=== PATIENT | female | born 1995 | race Caucasian/White ===

== ENCOUNTER 2022-09-12 08:38 | Outpatient (REF) | payer OTHER, SELFPAY ==
[2022-09-12 13:08] LABS: Anion Gap 13 (12-20); Blood Urea Nitrogen 9 mg/dL (9-16); Calcium 8.8 mg/dL (8.4-10.2); Carbon Dioxide 23 mmol/L (22-29); Chloride 110 mmol/L (96-108); Cholesterol 165 mg/dL; Estimated Glomerular Filt Rate > 60; Glucose Fasting 106 mg/dL (60-99); HDL Cholesterol 39 mg/dL; LDL Cholesterol Calculated 111 mg/dl; Potassium 4.1 mmol/L (3.3-5.1); Sodium 142 mmol/L (135-145); Triglycerides 78 mg/dL
[2022-09-12 13:32] LABS: Vitamin D 25-OH Total 17.3 ng/mL (>30)
== END 2022-09-12 08:39 | disposition home or self-care (01) ==
LOC: HO.HMGCLDS 08:38
PROVIDERS: PCP Internal Medicine; Visit Provider Internal Medicine
DX: Z00.01 Encounter for general adult medical examination with abnormal findings (principal); E66.01 Morbid (severe) obesity due to excess calories; G35 Multiple sclerosis
CPT/HCPCS: 36415; 80048; 80061; 82306

== ENCOUNTER 2024-03-27 10:55 | Outpatient (AMB) | payer OTHER, SELFPAY ==
--- NOTE | 2024-03-27 10:59 | A.OFFPC_ITS ---
Vital Signs 03/27/24 11:00 Height 5 ft 3 in Weight 260 lb BMI 46.1 BP 120/70 Blood Pressure Location Lt brachial Position Sitting Pulse 91 Pulse Source Pulse Oximeter Pulse Oximetry (%) 100 Oxygen Delivery Method Room Air Intake Visit Reasons: Annual PE Intake Note: Pt is here today for her PE: Is last menstrual period known: Yes Last menstrual period: 03/07/24 Allergies No Known Allergies Allergy (Verified 03/27/24 11:07) Medication List - Last Reconciled 03/27/24 by Mignon Thomas MD ocrelizumab (Ocrevus) 600 mg IV [id number] Tobacco use date assessed: 03/27/24 Dental Screening Dental Screen Date: 03/27/24 Did you have a dental visit in the last 12 months?: Yes Did you have a dental problem in the last 6 months where you did not have access to dental care?: No Was dental information given to patient?: Patient has dentist HPI Annual PE HPI Details 28-year-old lady with history of multipl e sclerosis currently on Ocrevus infusion every six-month followed at Neurology in [facility], here today for physical exam. She goes to [facility] for her routine Pap and pelvic exam. She has been feeling well, with no complaints at present time. Trying to lose weight through diet and exercise. [facility] Medical History (Updated 03/27/24 @ 11:27 by Mignon Thomas MD) COVID-19 vaccination refused Impaired fasting glucose Anxiety History of COVID-19 Hx of optic neuritis Morbid obesity Multiple sclerosis Surgical History No pertinent past surgical history Family History Father Alcoholism Substance use disorder Mother Hypercholesterolemia Maternal Grandmother Diabetes mellitus Family/Other Substance use disorder Paternal Aunt Multiple sclerosis Social History Household Members: Significant Other Housing: Apartment Alcohol intake: current Alcohol intake frequency: holidays/special occasions only Alcohol type: wine Patient Tobacco Use Status: Never used Tobacco e-Cigarette/Vaping Use: Never Used Second Hand Smoke Exposure: No service: No Current occupational status: employed Current occupation: [employer] Current occupational exposures/hazards: No Cognitive needs: No Hearing needs: No Vision needs: Yes Female Reproductive History Menstrual Duration of menses: 3-5 days Date of last menstrual period: 03/07/24 [facility] Questionnaire PHQ-9 Over the last 2 weeks, how often have you been bothered by any of the following problems? 1. Little interest or pleasure in doing things: not at all 2. Feeling down, depressed, or hopeless: not at all 3. Trouble falling or staying asleep, or sleeping too much: not at all 4. Feeling tired or having little energy: several days 5. Poor appetite or overeating: not at all 6. Feeling bad about yourself - or that you are a failure or have let yourself or your family down: not at all 7. Trouble concentrating on things, such as reading the newspaper or watching television: not at all 8. Moving or speaking so slowly that other people could have noticed. Or the opposite - being so fidgety or restless that you have been moving around a lot more than usual: not at all 9. Thoughts that you would be better off or of hurting yourself in some way: not at all Total score: 1 Depression Screening Interpretation: Negative Depression Screening Done: Yes 97482 - PHQ-9 Billing: Yes Source: Developed by Drs. Logan Alexandra, Melody Kelly, Igor March and colleagues, with an educational marie from [employer]. Thrive Questionnaire Date Thrive assessed: 09/12/22 I am a: Patient What is your living situation today?: I have a steady place to live Within the past 12 months, did the food you bought not last and you didn't have the money to get more?: Never true Within the past 12 months, did you worry whether your food would run out before you got money to buy more?: Never true Do you have trouble paying for medicines?: No Do you have trouble getting transportation to medical appointments?: No Do you have trouble paying your heating and electricity bill?: No Do you have trouble taking care of your child, family member or friend?: No Do you have trouble with day-to-day activities such as bathing, preparing meals, shopping, managing finances, etc.?: No Are you currently unemployed and looking for a job?: No Are you interested in more education?: No Please select the resources that you would like help with: Housing/Care Home Currently or been in a relationship where the following occur: No concerns reported THRIVE Score: 0 AUDIT C Alcohol Use Questionnaire (AUDIT-C) 1. How often do you have a drink containing alcohol?: Monthly or less 2. How many drinks containing alcohol do you have on a typical day when you are drinking?: 1 or 2 3. How often do you have six or more drinks on one occasion?: Never Total Score: 1 KAYCE-7 AMB Questionnaire KAYCE-7 Date KAYCE - 7 assessed: 09/12/22 Feeling nervous, anxious, or on edge: 1 = Several days Not being able to stop or control worryin = Several days Worrying too much about different things: 1 = Several days Trouble relaxin = Not at all Being so restless that it is hard to sit still: 0 = Not at all Becoming easily annoyed or irritable: 2 = More than half the days Feeling afraid as if something awful might happen: 0 = Not at all Total KAYCE-7 score (0-4 normal; 5-9 mild; 10-14 moderate; 15-21 severe): 5 Source: Developed by Drs. Logan Alexandra, Melody Kelly, Igor March and colleagues, with an educational marie from [employer]. KAYCE-7 Assessment Billing KAYCE-7 Assessment Tool: KAYCE-7 Assessment 14315 Review of Systems Const Denies body aches, Denies fatigue, Denies fever(s), Denies headache(s) and Denies weakness Eyes Details: [employer] for routine eye exam Denies change in vision, Denies eye discharge and Denies itchy eyes ENT Denies dizziness, Denies headache(s), Denies nasal congestion, Denies nasal discharge and Denies sore throat Card Denies chest pain, Denies lightheadedness, Denies palpitations and Denies dyspnea Resp Denies chest congestion, Denies cough, Denies dyspnea and Denies wheezing GI Denies abdominal pain, Denies change in bowel habits and Denies heartburn Denies abnormal menses, Denies urinary frequency, Denies difficulty voiding, Denies genital pruritis, Denies genital lesions, Denies menorrhagia, Denies nipple discharge, Denies dysmenorrhea, Denies dysuria, Denies urinary urgency and Denies vaginal discharge Musc Denies back pain, Denies myalgias and Denies arthralgias Skin/Breast Denies lesions, Denies nipple discharge and Denies rash Neuro Denies dizziness, Denies headache(s) and Denies weakness Psych Reports as per HPI Endo Denies fatigue, Denies polydipsia, Denies polyuria and Denies palpitations Ford/Lymph Denies easy bruising Aller/Immun Denies itchy eyes, Denies seasonal rhinorrhea and Denies wheezing Physical exam (Primary Care) Vital Signs: Last Vital Signs Pulse 91 03/27/24 11:00 BP 120/70 03/27/24 11:00 Pulse Ox 100 03/27/24 11:00 Oxygen Delivery Method Room Air 03/27/24 11:00 BMI result Body Mass Index 46.1 Tobacco/Smoking Status: Tobacco use Status Tobacco use date assessed 03/27/24 03/27/24 11:04 Patient Tobacco Use Status Never used Tobacco 03/27/24 11:04 e-Cigarette/Vaping Use Never Used 03/27/24 11:04 PHQ-9: PHQ-9 Score PHQ-9: Total score 1 03/30/24 16:21 Depression Screening Interpretation: Negative Thrive Assessment: Date of Thrive Assessment Date Thrive assessed 09/12/22 03/27/24 11:04 Currently or been in a relationship where the following occur: No concerns reported Const General: comfortable, no acute distress, alert and awake Nutritional Appearance: obese morbidly obese Orientation/consciousness: patient oriented x3 [facility] Head: Yes normocephalic and Yes atraumatic Ears: hearing grossly normal bilaterally, external ears normal, TM's normal bilaterally and EAC's normal General nose exam: Normal external nose present and No nasal discharge present Face and sinus: Yes face symmetric Mouth: Normal oral and palatal mucosa present, oropharynx normal and moist mucous membranes Eyes General: appearance normal, both eyes and all related structures Conjunctivae: conjunctivae normal Sclerae: sclerae normal Pupils: Equal, round and reactive pupils present EOM: EOMs intact bilaterally Neck Neck: Yes full ROM, Yes no lymphadenopathy, Yes no meningeal signs and Yes supple Thyroid: Thyroid normal Chest Chest palpation & inspection: normal inspection of the chest Breast/axilla palpation: normal palpation of the breasts Resp Effort & Inspection: normal respiratory effort and able to speak in complete sentences Auscultation: clear to auscultation bilaterally Cardio Rate: regular rate Rhythm: regular rhythm Heart sounds: S1 normal heart sound present and S2 normal heart sound present GI Inspection: Yes obesity Palpation (GI): Soft to palpation, nontender, no guarding and no masses General: Yes no CVA tenderness and Yes deferred (sees BS LEAD TECHNICAL ARCHITECT) Back/Spine/Pelvis Back: no CVA tenderness and No back tenderness Cervical Spine: normal cervical lordosis and cervical ROM normal Thoracic/Lumbar Spine: thoracic and lumbar spine normal to inspection Skin General skin exam: no rashes or lesions noted Neuro General: patient oriented x3, gait normal, tone normal, moves all extremities, Normal light touch and pain sensation, no meningeal signs, no focal motor deficits and CN's II-XI intact bilaterally Cranial nerves: Yes Equal, round and reactive pupils present Cognition (Neuro): normal cognition Gait exam (Neuro): Normal gait present Motor exam (neuro): 5/5 motor strength present throughout Extrem General: Yes full ROM, Yes no joint enlargement, Yes no clubbing, cyanosis or edema, Yes no calf tenderness and Yes normal gait Psych Appearance: grossly normal and well kempt Mental Status: mental status grossly normal Speech and movement: Normal speech and movement present Affect: normal affect Attitude: cooperative Thought process: Normal thought process present Thought content: Normal thought content present Assessment and Plan Assessment & Plan (1) Multiple sclerosis: Comment: dx in 02/2015 , now sees [facility] Code(s): G35 - Multiple sclerosis Plan: Request records from [facility] neurology clinic. She is currently on Ocrevus, doing well when it, currently asymptomatic (2) Morbid obesity: Code(s): E66.01 - Morbid (severe) obesity due to excess calories Plan: Your BMI is above the ideal range. Recommended focusing on improving health instead of dieting. Mediterranean diet is a healthy diet that helps, limit food high in fat, sugar, and calories. Eat slowly, pay attention to portion sizes, plan your meals ahead of time, start regular physical activity, at least 150 minutes of moderate intensity exercise, or 90 minutes per week of vigorous exercise. Keeping a food diary, tracking what you eat and your physical activity can help assess what improvements you can make. There are many health problems associated with being overweight/obese, so it is important to improve your diet and exercise. There are medications and surgical options available, but Lifestyle changes are the 1st step. (3) Impaired fasting glucose: Code(s): R73.01 - Impaired fasting glucose Plan: Your previous fasting blood sugars were elevated above 100 mg/dL. Impaired glucose metabolism increases the risk for developing diabetes mellitus type 2, as well as heart attack and stroke later on. Lifestyle changes that promotes weight loss, healthy eating habits, and regular exercise are important, and can prevent the progression to diabetes (4) Encounter for counseling regarding advance directives: Code(s): Z71.89 - Other specified counseling Plan: Initiated the conversation about Advanced Directives. Advanced Directives help patients prepare for current and future decisions about their medical treatment and place of care. Discussed with patient that it is a process where a patients current condition and prognosis are reviewed, their wishes for information regarding their illness are elicited, and likely medical dilemmas are presented and options discussed. Healthcare proxy form completed. The form can be amended as needed, reviewed yearly and make changes as needed (5) Annual visit for general adult medical examination with abnormal findings: Code(s): Z00.01 - Encounter for general adult medical examination with abnormal findings Plan: Will check appropriate labs. Get dental visit every 6 months and regular eye exams, at least every 2 years. Take adequate calcium in diet and vitamin-D 3 at 2000 IU per cap once a day, in addition to weight-bearing exercises to help maintain good muscle tone and weight control. Instructed to do self-breast exam, and recommended to get yearly mammogram, starting at age 40. Declines getting COVID vaccines and yearly flu shot . Advised to get Tdap vaccination (6) COVID-19 vaccination refused: Code(s): Z28.21 - Immunization not carried out because of patient refusal (7) Refused influenza vaccine: Code(s): Z28.21 - Immunization not carried out because of patient refusal Orders: Orders Vitamin D 25-OH Total 03/27/24 E66.01 - Morbid (severe) obesity due to excess calories, G35 - Multiple sclerosis, R73.01 - Impaired fasting glucose, Z00.01 - Encounter for general adult medical examination with abnormal findings, Z71.89 - Other specified counseling Lipid Panel 03/27/24 E66.01 - Morbid (severe) obesity due to excess calories, G35 - Multiple sclerosis, R73.01 - Impaired fasting glucose, Z00.01 - Encounter for general adult medical examination with abnormal findings, Z71.89 - Other specified counseling Basic Metabolic Panel Fasting 03/27/24 E66.01 - Morbid (severe) obesity due to excess calories, G35 - Multiple sclerosis, R73.01 - Impaired fasting glucose, Z00.01 - Encounter for general adult medical examination with abnormal findings, Z71.89 - Other specified counseling Alanine Aminotransferase 03/27/24 E66.01 - Morbid (severe) obesity due to excess calories, G35 - Multiple sclerosis, R73.01 - Impaired fasting glucose, Z00.01 - Encounter for general adult medical examination with abnormal findings, Z71.89 - Other specified counseling Aspartate Amino Transferase 03/27/24 E66.01 - Morbid (severe) obesity due to excess calories, G35 - Multiple sclerosis, R73.01 - Impaired fasting glucose, Z00.01 - Encounter for general adult medical examination with abnormal findings, Z71.89 - Other specified counseling Coding Level of Care Code Est Pt Prev Care 18-39y([id number]) Diagnoses Multiple sclerosis G35 Morbid obesity E66.01 Impaired fasting glucose R73.01 Encounter for counseling regarding advance directives Z71.89 Annual visit for general adult medical examination with abnormal findings Z00.01 COVID-19 vaccination refused Z28.21 Refused influenza vaccine Z28.21 Additional Codes KAYCE-7 Assessment Billing - KAYCE-7 Assessment Tool: KAYCE-7 Assessment 14105 ([id number])
[2024-03-27 11:00] VITALS: BP 120/70; PULSE 91; O2SAT 100; BMI 46.1
== END 2024-03-27 11:28 | disposition home or self-care (01) ==
PROVIDERS: Visit Provider Internal Medicine
DX: Z00.00 Encounter for general adult medical examination without abnormal findings (principal); G35 Multiple sclerosis; E66.01 Morbid (severe) obesity due to excess calories; Z68.42 Body mass index [BMI] 45.0-49.9, adult; R73.01 Impaired fasting glucose; Z71.89 Other specified counseling; Z28.21 Immunization not carried out because of patient refusal
CPT/HCPCS: 99395

== ENCOUNTER 2025-05-18 08:53 | Outpatient (AMB) | payer OTHER, SELFPAY ==
--- OUTSIDE RECORDS SUMMARY | 2024-03-04 10:30 | XMS_ITS ---
Author Organization [facility] [address] Address [address] [place] [address] Care Team Providers Care Shop Laborer Name Role Phone Elana Morales Unavailable [phone] Encounters Encounter Location Date Provider Diagnosis [facility] [address] [place] [address] [place] [id number] 03/04/2024 Elana Morales Plan Of Treatment No Information Progress Notes * Rosamaria ESCALANTEOB:[birth year] (29 yo F)Acc No.[id number]:03/04/2024 Patient: Thierry MONTANEZhanie Provider: Mary Morales PA-C :1995 A ge:28 Y S ex:Female Date:03/04/2024 Address:[address] [place] [address] , [phone] Subjective: * Chief Complaints: * * Medical History: Objective: * Vitals: Assessment: Plan: * Treatment: * Images: Billing Information: * Visit Code: * Procedure Codes: * Electronic signature of Elana Morales PA-C on 05/18/2025 at 09:56 AM EDT Sign off status: Pending * Provider: Mary Morales PA-C Date: 03/04/2024 Generated for Aylin sky/Tricia/eTransmitting on: 05/18/2025 09:56 AM EDT
--- NOTE | 2025-05-18 08:55 | A.OFFPC_ITS ---
Vital Signs 05/18/25 08:59 Height 5 ft 3 in Weight 249 lb BMI 44.1 BP 112/74 Blood Pressure Location Rt brachial Position Sitting Respiration 16 Pulse 95 Pulse Source Pulse Oximeter Temp 98.7 F Temp Source Oral Pulse Oximetry (%) 100 Oxygen Delivery Method Room Air Intake Visit Reasons: Annual PE Intake Note: Pt is here today for her PE Is last menstrual period known: Yes Last menstrual period: 05/16/25 Allergies No Known Allergies Allergy (Verified 05/18/25 09:17) Medication List - Last Reconciled 05/18/25 by Mignon Thomas MD ocrelizumab (Ocrevus) 600 mg IV [id number] Tobacco use date assessed: 05/18/25 Dental Screening Dental Screen Date: 05/18/25 Did you have a dental visit in the last 12 months?: Yes Did you have a dental problem in the last 6 months where you did not have access to dental care?: No Was dental information given to patient?: Patient has dentist HPI Annual PE HPI Details 29-year-old lady with history of multipl e sclerosis currently on Ocrevus infusion every six-month followed at [email or web address] here today for physical exam. She goes to [facility] for her routine Pap and pelvic exam. She has been feeling well, with no complaints at present time. Trying to lose weight through diet and exercise. - The patient reports a two-month histo ry of a spreading rash with itching, which has not improved with CeraVe use - The patient is experiencing nasal courtney estion and headache, and is currently on day 13 of symptoms, with no fever - Vitamin D deficiency: The patient has a history of low vitamin D levels, previously recorded at 17 ng/mL, and currently at 22 ng/mL. - Preventative care: The patient has not had an DIRECTOR OF STATE visit in over five years and has been referred for a Pap smear. [facility] Medical History (Updated 05/18/25 @ 09:31 by Mignon Thomas MD) Vitamin D deficiency COVID-19 vaccination refused Impaired fasting glucose Anxiety History of COVID-19 Hx of optic neuritis Morbid obesity Multiple sclerosis Surgical History No pertinent past surgical history Family History Father Alcoholism Substance use disorder Mother Hypercholesterolemia Maternal Grandmother Diabetes mellitus Family/Other Substance use disorder Paternal Aunt Multiple sclerosis Social History Household Members: Significant Other Housing: Apartment Alcohol intake: current Alcohol intake frequency: holidays/special occasions only Alcohol type: wine Patient Tobacco Use Status: Never used Tobacco e-Cigarette/Vaping Use: Never Used Second Hand Smoke Exposure: No service: No Current occupational status: employed Current occupation: [employer] Current occupational exposures/hazards: No Cognitive needs: No Hearing needs: No Vision needs: Yes Female Reproductive History Menstrual Date of last menstrual period: 05/16/25 Questionnaire PHQ-9 Over the last 2 weeks, how often have you been bothered by any of the following problems? 1. Little interest or pleasure in doing things: not at all 2. Feeling down, depressed, or hopeless: not at all 3. Trouble falling or staying asleep, or sleeping too much: several days 4. Feeling tired or having little energy: several days 5. Poor appetite or overeating: not at all 6. Feeling bad about yourself - or that you are a failure or have let yourself or your family down: not at all 7. Trouble concentrating on things, such as reading the newspaper or watching television: not at all 8. Moving or speaking so slowly that other people could have noticed. Or the opposite - being so fidgety or restless that you have been moving around a lot more than usual: several days 9. Thoughts that you would be better off or of hurting yourself in some way: not at all Total score: 3 Depression Screening Interpretation: Negative Depression Screening Done: Yes 33078 - PHQ-9 Billing: Yes Source: Developed by Drs. Logan Alexandra, Melody Kelly, Igor March and colleagues, with an educational marie from [employer]. Thrive Questionnaire Date Thrive assessed: 05/18/25 I am a: Patient What is your living situation today?: I have a steady place to live Within the past 12 months, did the food you bought not last and you didn't have the money to get more?: Never true Within the past 12 months, did you worry whether your food would run out before you got money to buy more?: Never true Do you have trouble paying for medicines?: No Do you have trouble getting transportation to medical appointments?: No Do you have trouble paying your heating and electricity bill?: No Do you have trouble taking care of your child, family member or friend?: No Do you have trouble with day-to-day activities such as bathing, preparing meals, shopping, managing finances, etc.?: No Are you currently unemployed and looking for a job?: No Are you interested in more education?: No Please select the resources that you would like help with: None Currently or been in a relationship where the following occur: No concerns reported THRIVE Score: 0 AUDIT C Alcohol Use Questionnaire (AUDIT-C) 1. How often do you have a drink containing alcohol?: Monthly or less 2. How many drinks containing alcohol do you have on a typical day when you are drinking?: 1 or 2 3. How often do you have six or more drinks on one occasion?: Never Total Score: 1 Score Reviewed/Action Taken: Yes KAYCE-7 AMB Questionnaire KAYCE-7 Date KAYCE - 7 assessed: 05/18/25 Feeling nervous, anxious, or on edge: 1 = Several days Not being able to stop or control worryin = Several days Worrying too much about different things: 1 = Several days Trouble relaxin = Not at all Being so restless that it is hard to sit still: 0 = Not at all Becoming easily annoyed or irritable: 1 = Several days Feeling afraid as if something awful might happen: 0 = Not at all Total KAYCE-7 score (0-4 normal; 5-9 mild; 10-14 moderate; 15-21 severe): 4 Source: Developed by Drs. Logan Alexandra, Melody Kelly, Igor March and colleagues, with an educational marie from [employer]. KAYCE-7 Assessment Billing KAYCE-7 Assessment Tool: KAYCE-7 Assessment 53498 Review of Systems Const Reports as per HPI and Denies fever(s) Eyes Details: Goes [facility] exam Reports no additional complaints and Reports requires corrective lenses ENT Details: Has Invisalign Card Reports no additional complaints Resp Reports as per HPI Reports no additional complaints Musc Reports no additional complaints Skin/Breast Denies breast pain, Denies breast mass, Denies lesions and Denies rash Neuro Reports no additional complaints Psych Reports no additional complaints Endo Reports no additional complaints Ford/Lymph Reports no additional complaints Aller/Immun Reports no additional complaints Physical exam (Primary Care) Vital Signs: Last Vital Signs Temp 98.7 F 05/18/25 08:59 Pulse 95 05/18/25 08:59 Resp 16 05/18/25 08:59 BP 112/74 05/18/25 08:59 Pulse Ox 100 05/18/25 08:59 Oxygen Delivery Method Room Air 05/18/25 08:59 BMI result Body Mass Index 44.1 Tobacco/Smoking Status: Tobacco use Status Tobacco use date assessed 05/18/25 05/18/25 08:58 Patient Tobacco Use Status Never used Tobacco 05/18/25 08:58 e-Cigarette/Vaping Use Never Used 05/18/25 08:58 PHQ-9: PHQ-9 Score PHQ-9: Total score 5 05/18/25 09:39 Depression Screening Interpretation: Negative Thrive Assessment: Date of Thrive Assessment Date Thrive assessed 05/18/25 05/18/25 08:58 Currently or been in a relationship where the following occur: No concerns reported Const General: comfortable, no acute distress, alert and awake Nutritional Appearance: obese morbidly obese Orientation/consciousness: patient oriented x3 HENMT Head: Yes normocephalic Ears: hearing grossly normal bilaterally, external ears normal, TM's normal bilaterally and EAC's normal General nose exam: Normal external nose present and No nasal discharge present Face and sinus: Yes face symmetric and Yes sinus tenderness Mouth: Normal oral and palatal mucosa present, oropharynx normal and moist mucous membranes Eyes General: appearance normal, both eyes and all related structures Conjunctivae: conjunctivae normal Sclerae: sclerae normal Pupils: Equal, round and reactive pupils present EOM: EOMs intact bilaterally Neck Neck: Yes full ROM, Yes no lymphadenopathy and Yes supple Thyroid: Thyroid normal Chest Chest palpation & inspection: normal inspection of the chest Breast/axilla palpation: normal palpation of the breasts Resp Effort & Inspection: normal respiratory effort and able to speak in complete sentences Auscultation: clear to auscultation bilaterally Cardio Rate: regular rate Rhythm: regular rhythm Heart sounds: S1 normal heart sound present and S2 normal heart sound present GI Inspection: Yes obesity Palpation (GI): Soft to palpation, nontender, no guarding and no masses General: Yes no CVA tenderness and Yes deferred (sees [facility] [employer]ER[employer]) Back/Spine/Pelvis Back: no CVA tenderness and No back tenderness Cervical Spine: normal cervical lordosis and cervical ROM normal Thoracic/Lumbar Spine: thoracic and lumbar spine normal to inspection Skin General skin exam: no rashes or lesions noted Neuro General: patient oriented x3, gait normal, tone normal, moves all extremities, Normal light touch and pain sensation, no focal motor deficits and CN's II-XI intact bilaterally Cranial nerves: Yes Equal, round and reactive pupils present Cognition (Neuro): normal cognition Gait exam (Neuro): Normal gait present Motor exam (neuro): 5/5 motor strength present throughout Extrem General: Yes full ROM, Yes no joint enlargement, Yes no clubbing, cyanosis or edema, Yes no calf tenderness and Yes normal gait Psych Appearance: grossly normal and well kempt Mental Status: mental status grossly normal Speech and movement: Normal speech and movement present Affect: normal affect Coding Level of Care Code Est Pt Prev Care 18-39y(17328) Diagnoses Annual visit for general adult medical examination with abnormal findings Z00.01 Impaired fasting glucose R73.01 Vitamin D deficiency E55.9 Acute sinusitis J01.90 Multiple sclerosis G35 Additional Codes KAYCE-7 Assessment Billing - KAYCE-7 Assessment Tool: KAYCE-7 Assessment 97973 ([id number]) PHQ-9 - 34974 - PHQ-9 Billing: Yes ([id number]) Assessment & Plan Assessment & Plan (1) Annual visit for general adult medical examination with abnormal findings: Code(s): Z00.01 - Encounter for general adult medical examination with abnormal findings Plan: Will check appropriate labs. Recommended dental visit every 6 months and regular eye exams, at least every 2 years. Take adequate calcium in diet and vitamin-D 3 at 2000 IU per cap once a day, in addition to weight-bearing exercises to help maintain good muscle tone and weight control. Instructed to do self-breast exam, and recommended to get yearly mammogram, starting at age 40. Up-to-date with her cervical cancer screening and pelvic exam, sees her own OBGYN . Reminded to get her yearly flu shot, but does not want to get it this time, did not want to get COVID vaccines, reminded that she is overdue for Tdap. (2) Impaired fasting glucose: Code(s): R73.01 - Impaired fasting glucose Category: Medical Plan: Your previous fasting blood sugars were elevated above 100 mg/dL. Impaired glucose metabolism increases the risk for developing diabetes mellitus type 2, as well as heart attack and stroke later on. Lifestyle changes that promotes weight loss, healthy eating habits, and regular exercise are important, and can prevent the progression to diabetes (3) Vitamin D deficiency: Code(s): E55.9 - Vitamin D deficiency, unspecified Category: Medical Plan: Vitamin-D level still low, continue taking [id number] vitamin-D 3 at 2000 units daily (4) Acute sinusitis: Code(s): J01.90 - Acute sinusitis, unspecified Plan: Started on amoxicillin/clavulanic acid 875 mg per tablet to take 1 every 12 hours with food for 10 days. Return to clinic if no improvement of symptoms after (5) Multiple sclerosis: Comment: dx in 02/2015 , now sees [facility] Code(s): G35 - Multiple sclerosis Category: Medical Plan: Called at the multiple sclerosis Clinic at [facility] , currently on [employer], which patient states has been helping Orders: Orders Aspartate Amino Transferase 05/18/25 E55.9 - Vitamin D deficiency, unspecified, E66.01 - Morbid (severe) obesity due to excess calories, R73.01 - Impaired fasting glucose, Z00.01 - Encounter for general adult medical examination with abnormal findings Hemoglobin and Hematocrit 05/18/25 E55.9 - Vitamin D deficiency, unspecified, E66.01 - Morbid (severe) obesity due to excess calories, R73.01 - Impaired fasting glucose, Z00.01 - Encounter for general adult medical examination with abnormal findings Hemoglobin A1c 05/18/25 E55.9 - Vitamin D deficiency, unspecified, E66.01 - Morbid (severe) obesity due to excess calories, R73.01 - Impaired fasting glucose, Z00.01 - Encounter for general adult medical examination with abnormal findings Alanine Aminotransferase 05/18/25 E55.9 - Vitamin D deficiency, unspecified, E66.01 - Morbid (severe) obesity due to excess calories, R73.01 - Impaired fasting glucose, Z00.01 - Encounter for general adult medical examination with abnormal findings Lipid Panel 05/18/25 E55.9 - Vitamin D deficiency, unspecified, E66.01 - Morbid (severe) obesity due to excess calories, R73.01 - Impaired fasting glucose, Z00.01 - Encounter for general adult medical examination with abnormal findings Vitamin D 25-OH Total 05/18/25 E55.9 - Vitamin D deficiency, unspecified, E66.01 - Morbid (severe) obesity due to excess calories, R73.01 - Impaired fasting glucose, Z00.01 - Encounter for general adult medical examination with abnormal findings Basic Metabolic Panel Fasting 05/18/25 E55.9 - Vitamin D deficiency, unspecified, E66.01 - Morbid (severe) obesity due to excess calories, R73.01 - Impaired fasting glucose, Z00.01 - Encounter for general adult medical examination with abnormal findings Medications: New amoxicillin-pot clavulanate 875-125 mg 1 tab PO Q12H 20 tabs 0RF
[2025-05-18 08:59] VITALS: BP 112/74; PULSE 95; RESP 16; TEMP 37.1; O2SAT 100; BMI 44.1
--- OUTSIDE RECORDS SUMMARY | 2025-05-18 09:56 | XMS_ITS | Encounter Summary ---
Author Organization [facility] Address [address] [place] [address] Care Team Providers Care Box Blank Machine Operator Helper Name Role Phone Ref, Has No Pcp Or Primary Care Provider Unavail able Reason for Visit * Reason Onset Date Comments PAC Appt Request - Established 04/30/2024 Encounter Details Date Type Department Care Team (Late st Contact Info) Description 04/30/2024 Telephone [facility] [address] [place] [address] Telephone Intake, Staff PAC Appt Request - Established Social History Tobacco Use Types Packs/Day Years Used Date Smoking Tobacco: Never Smokeless Tobacco: Never Alcohol Use Standard Drinks/Week Comments Yes 0 (1 standard drink = 0.6 oz pur e alcohol) Comments Unknown Sex and Gender Information Value Date Recorded Sex Assigned at Female 04/13/2020 5:54 PM EDT Legal Sex Female 10:19 AM EDT Gender Identity Female 05/16/2018 1:39 PM EDT Sexual Orientation Straight 05/22/2020 1: 08 PM EDT documented as of this encounter Miscellaneous Notes * Telephone Encounter - Diana Sandraarez - 04/30/2024 12:14 PM EDT Pt calling to reschedule infusion appt on 07/04 for July CB # [phone] Thank you documented in this encounter Plan of Treatment Upcoming Encounters Date Type Department Care Team (Late st Contact Info) Description 07/20/2025 8:00 AM EST Infusion [facility] [address], [place] [id number] 12/10/2025 9:00 AM EDT Office Visit [facility] [address] [place] [id number] Safety Lead: Kristyn Vasquez MD [address] [place] [id number] documented as of this encounter Visit Diagnoses Not on filedocumented in this encounter Care Teams Box Blank Machine Operator Helper Relationship Specialty Start Date End Date Ref, Has No Pcp Or DO NOT EDIT THIS RECORD VIA PROVIDER ON THE FLY PCP - General Manager Business Management 04/15/18 documented as of this encounter
--- OUTSIDE RECORDS SUMMARY | 2025-05-18 09:56 | XMS_ITS | Clinical Summary ---
Author Organization [facility] Address [address] [place] [address] Care Team Providers Care Video Poker Floorman Name Role Phone Ref, Has No Pcp Or Primary Care Provider Unavail able Allergies No known active allergies Medications cholecalcifero l (VITAMIN D3) 2,000 unit capsule Take 1 capsule (2,000 Units total) by mouth once a day. 4 Active ocrelizumab (Ocrevus) 30 mg/mL injection solution Infuse 20 mL (600 mg total) intravenously once for 1 dose. 20 mL 01/07/2025 9:13 AM EDT 5 Active SUMAtriptan (IMITREX) 25 mg tablet Take 1 tablet (25 mg total) by mouth daily as needed for migraine. May repeat dose once in 2 hours if no relief. Do not exceed 2 doses in 24 hours. 15 tablet 2 5 Active Active Problems Problem Noted Date Diagnosed Date Elevated serum hCG 01/09/2019 MS (multiple sclerosis) 05/02/2018 Immunizations Immunization Administration Dates Next Due Influenza, Injectable, Quadr ivalent, Contains Preservative 08/20/2018 Social History Tobacco Use Types Packs/Day Years Used Date Smoking Tobacco: Never Smokeless Tobacco: Never Tobacco Cessation:Counseling Given: Not Answered Alcohol Use Standard Drinks/Week Comments Yes 0 (1 standard drink = 0.6 oz pur e alcohol) Comments Unknown Sex and Gender Information Value Date Recorded Sex Assigned at Female 04/13/2020 5:54 PM EDT Legal Sex Female 10:19 AM EDT Gender Identity Female 05/16/2018 1:39 PM EDT Sexual Orientation Straight 05/22/2020 1: 08 PM EDT Last Filed Vital Signs Vital Sign Reading Time Taken Comments Blood Pressure 113/77 01/16/2025 1:26 PM EDT Pulse 72 01/16/2025 1:26 PM EDT Temperature 36.7 C (98.1 F) 01/16/2025 1:26 PM EDT Respiratory Rate 18 01/16/2025 1:26 PM EDT Oxygen Saturation 100% 01/07/2025 9:02 AM EDT Inhaled Oxygen Concentration - - Weight 114.4 kg (252 lb 3.3 oz) 01/16/2025 9:15 AM EDT Height 162 cm (5' 3.78 ) 12/28/2023 9:04 AM EDT Body Mass Index 43.59 12/28/2023 9:04 AM EDT Plan of Treatment Upcoming Encounters Date Type Department Care Team (Late st Contact Info) Description 07/20/2025 8:00 AM EST Infusion [facility] [address] [place] [address] 12/10/2025 9:00 AM EDT Office Visit [facility] [address] [place] [phone] Electronic Scale Subassembler: Kristyn Vasquez MD [address] [place] [phone] Health Maintenance Due Date Last Done Comments Cervical Cancer Screening 1993 HPV and Pap Smear 1993 Pap Smear 1993 Varicella Vaccines (1 of 2 - 13+ 2-dose series) 2006 Hepatitis B Vaccines (1 of 3 - 19+ 3-dose series) 2012 05/29/2017 DTaP,Tdap,and Td Vaccines (1 - Tdap) 12/19/2015 Alcohol/Substance Use Screening 09/10/2024 Depression Screening and Follow-Up 09/10/2024 Social Drivers of Health [place] ual Screening 09/10/2024 COVID-19 Vaccine (1 - 2023-2 5 season) 2025 Influenza Vaccine (#1) 2025 08/20/2018 RSV Vaccine (60+ years old a nd patients) (1 - 1-dose 75+ series) 2068 HIV Screening Completed 05/02/2018 Hepatitis C Screening Completed 05/02/2018 Pneumococcal Vaccine: Pediat chris (0-5 Years) and At-Risk Patients (6-50 Years) Aged Out No longer eligible b ased on patient's age to complete this topic Procedures * Due to [place] [employer] law, this organization might not be sharing negative HIV tests. Procedure Name Priority Date/Time Associated Diagnosis Comments HEPATITIS PANEL, ACUTE Routine 05/02/2018 12:38 PM EDT MS (multiple sclerosis) from Last 3 Months or Most Recently Relevant to Health Maintenance Results * Due to [place] [employer] law, this organization might not be sharing negative HIV tests. * Hepatitis Panel, Acute (05/02/2018 12:38 PM EDT) Hepatitis A IgM NON-REACT JUDITH NON-REACT JUDITH 05/07/2018 8:14 PM EDT [facility] Hepatitis B Surface Antigen NON-REACT JUDITH NON-REACT JUDITH 05/07/2018 8:14 PM EDT [facility] Hepatitis B Core Antibody NON-REACT JUDITH NON-REACT JUDITH 05/07/2018 8:14 PM EDT [facility] Hepatitis C Antibody NON-REACT JUDITH NON-REACT JUDITH 05/07/2018 8:14 PM EDT [facility] Signal To Cut-Off 0.02 <1.00 05/07/2018 8:14 PM EDT [facility] Blood specimen (specimen) Structure of peripheral vein / Unknown Venipuncture / Unknown 05/02/2018 12:38 PM EDT 05/02/2018 12:52 PM EDT Narrative [facility] - 05/07/2018 8:14 PM EDT [facility] Received Date: Torres José MD PhD LAB BLOOD ORDERABLES Edit ed Result - Final [facility] [address], [place] [address], Al[facility] [address], [place] [address], from Last 3 Months or Most Recently Relevant to Health Maintenance Insurance [employer] Care Teams Video Poker Floorman Relationship Specialty Start Date End Date Ref, Has No Pcp Or DO NOT EDIT THIS RECORD VIA PROVIDER ON THE FLY PCP - General Contracts Paralegal 04/15/18
--- OUTSIDE RECORDS SUMMARY | 2025-05-18 09:56 | XMS_ITS | Encounter Summary ---
Author Organization [facility] Address [address] [place] [address] Care Team Providers Care Marine Electronics Repairer Name Role Phone Ref, Has No Pcp Or Primary Care Provider Unavail able Encounter Details Date Type Department Care Team (Late st Contact Info) Description 11/28/2022 Identification Internationalhart Message [facility] PB Revenue [employer] Management [address] [place] [address] Mychart, Generic Provider [facility] [place] [phone] payment plan Social History Tobacco Use Types Packs/Day Years [...] PM EDT documented as of this encounter Plan of Treatment Upcoming Encounters Date Type Department Care Team (Late st Contact Info) Description 07/20/2025 8:00 AM EST Infusion [facility] [address] [place] [address] 12/10/2025 9:00 AM EDT Office Visit [facility] [address] [place] [address] Safety Coordinator: Kristyn Vasquez MD [address] [place] [address] documented as of this encounter Visit Diagnoses Not on filedocumented in this encounter Care Teams Marine Electronics Repairer Relationship Specialty Start Date End Date Ref, Has No Pcp Or DO NOT EDIT THIS RECORD VIA PROVIDER ON THE FLY PCP - General Filer Helper 04/15/18 documented as of this encounter
--- OUTSIDE RECORDS SUMMARY | 2025-05-18 09:57 | XMS_ITS | Encounter Summary ---
Author Organization [facility] Address [address] [place] [address] Care Team Providers Care Anesthesiologist Attending Name Role Phone Ref, Has No Pcp Or Primary Care Provider Unavail able Encounter Details Date Type Department Care Team (Late st Contact Info) Description 08/30/2022 Vinsulahart Message [facility] Revenue Cycle Management [address] [place] [address] Mychart, Generic Provider [facility] [place] [place] [phone] payment plan Social History Tobacco Use Types [...] Info) Description 07/20/2025 8:00 AM EST Infusion [facility] [address] [place] [address] 12/10/2025 9:00 AM EDT Office Visit [facility] [address] [place] [address] Shell Core And Molding Supervisor: Kristyn Vasquez MD [address] [place] [address] documented as of this encounter Visit Diagnoses Not on filedocumented in this encounter Care Teams Anesthesiologist Attending Relationship Specialty Start Date End Date Ref, Has No Pcp Or DO NOT EDIT THIS RECORD VIA PROVIDER ON THE FLY PCP - General Scientist/Engineer 04/15/18 documented as of this encounter
--- OUTSIDE RECORDS SUMMARY | 2025-05-18 09:57 | XMS_ITS | Encounter Summary ---
Author Organization [facility] Address [address] [place] [address] Care Team Providers Care Truck Jumper Name Role Phone Ref, Has No Pcp Or Primary Care Provider Unavail able Encounter Details Date Type Department Care Team (Late st Contact Info) Description 11/19/2021 Orders Only [facility] [address] [place] [address] Myron Crockett [facility] Social History Tobacco Use Types Packs/Day Years [...] Info) Description 07/20/2025 8:00 AM EST Infusion [facility] [address] [place] [address] 12/10/2025 9:00 AM EDT Office Visit [facility] [address] [place] [phone] Biology Internship: Kristyn Vasquez MD [address] [place] [address] documented as of this encounter Visit Diagnoses Not on filedocumented in this encounter Care Teams Truck Jumper Relationship Specialty Start Date End Date Ref, Has No Pcp Or DO NOT EDIT THIS RECORD VIA PROVIDER ON THE FLY PCP - General Practice Support Specialist 04/15/18 documented as of this encounter
--- OUTSIDE RECORDS SUMMARY | 2025-05-18 09:57 | XMS_ITS | Encounter Summary ---
Author Organization [facility] Address [address] [place] [address] Care Team Providers Care Welt Treater Name Role Phone Ref, Has No Pcp Or Primary Care Provider Unavail able Encounter Details Date Type Department Care Team (Late st Contact Info) Description 08/07/2022 Karisma Kidzhart Message [facility] [address] [place] [address] Mychart, Generic Provider [facility] Anywhere [place] [phone] payment plan Social History Tobacco Use Types [...] Info) Description 07/20/2025 8:00 AM EST Infusion [facility] [address] [place] [address] 12/10/2025 9:00 AM EDT Office Visit [facility] [address] [place] [address] Felt Strip Finisher: Kristyn Vasquez MD [address] [place] [address] documented as of this encounter Visit Diagnoses Not on filedocumented in this encounter Care Teams Welt Treater Relationship Specialty Start Date End Date Ref, Has No Pcp Or DO NOT EDIT THIS RECORD VIA PROVIDER ON THE FLY PCP - General Burn Center Nurse 04/15/18 documented as of this encounter
--- OUTSIDE RECORDS SUMMARY | 2025-05-18 09:57 | XMS_ITS | Encounter Summary ---
Author Organization [facility] Address [address] [place] [address] Care Team Providers Care Inside Outside Sales Representative Name Role Phone Ref, Has No Pcp Or Primary Care Provider Unavail able Encounter Details Date Type Department Care Team (Late st Contact Info) Description 06/28/2023 Yumithart Message [facility] Revenue Cycle Management [address] [place] [address] Mychart, Generic Provider [facility] Anywhere [place] [phone] Auto-pay for payment plan. Social History Tobacco Use Types Packs/Day Years [...] Info) Description 07/20/2025 8:00 AM EST Infusion [facility] [address] [place] [address] 12/10/2025 9:00 AM EDT Office Visit [facility] [address] [place] [address] Mailhouse Operator: Kristyn Vasquez MD [address] [place] [address] documented as of this encounter Visit Diagnoses Not on filedocumented in this encounter Care Teams Inside Outside Sales Representative Relationship Specialty Start Date End Date Ref, Has No Pcp Or DO NOT EDIT THIS RECORD VIA PROVIDER ON THE FLY PCP - General Proposal Manager 04/15/18 documented as of this encounter
--- OUTSIDE RECORDS SUMMARY | 2025-05-18 09:57 | XMS_ITS | Encounter Summary ---
Author Organization [facility] Address [address] [place] [address] Care Team Providers Care Signs And Displays Salesperson Name Role Phone Ref, Has No Pcp Or Primary Care Provider Unavail able Encounter Details Date Type Department Care Team (Late st Contact Info) Description 10/11/2022 Meldiumhart Message [facility] Cycle Management [address] [place] [address] Mychart, Generic Provider [facility] Anywhere [place] [phone] payment plan Social History Tobacco Use Types [facility] [address] [place] [address] 12/10/2025 9:00 AM EDT Office Visit [facility] [address] [place] [address] Dethistler Operator: Kristyn Vasquez MD [address] [place] [address] documented as of this encounter Visit Diagnoses Not on filedocumented in this encounter Care Teams Signs And Displays Salesperson Relationship Specialty Start Date End Date Ref, Has No Pcp Or DO NOT EDIT THIS RECORD VIA PROVIDER ON THE FLY PCP - General People Greeter 04/15/18 documented as of this encounter
--- OUTSIDE RECORDS SUMMARY | 2025-05-18 09:57 | XMS_ITS | Encounter Summary ---
Author Organization [facility] Address [address] [place] [address] Care Team Providers Care Hotel Or Motel Manager Name Role Phone Ref, Has No Pcp Or Primary Care Provider Unavail able Encounter Details Date Type Department Care Team (Late st Contact Info) Description 09/15/2022 Al Jazeera Agriculturalhart Message [facility] Revenue Cycle Management [address] [place] [address] Mychart, Generic Provider [facility] Anywhere [place] [phone] payment plan Social History Tobacco Use Types [...] Info) Description 07/20/2025 8:00 AM EST Infusion [facility] [address] [place] [address] 12/10/2025 9:00 AM EDT Office Visit [facility] [address] [place] [address] Supervisor Throwing Department: Kristyn Vasquez MD [address] [place] [address] documented as of this encounter Visit Diagnoses Not on filedocumented in this encounter Care Teams Hotel Or Motel Manager Relationship Specialty Start Date End Date Ref, Has No Pcp Or DO NOT EDIT THIS RECORD VIA PROVIDER ON THE FLY PCP - General Supervisor Electron Tube Processing 04/15/18 documented as of this encounter
--- OUTSIDE RECORDS SUMMARY | 2025-05-18 09:57 | XMS_ITS | Patient Health Record ---
Author Organization [facility] Address [address] [place] [address] Reason For Referral No Information Plan Of Treatment No Information Insurance Providers Payer Name Payer Address Payer Phone Subscriber Number Group Number Insured Name Patient Relationship to Insured Coverage Start Date Coverage End Date [facility] [address] [place] [address] [id number] Althea Bello Self - patient is the insured
--- OUTSIDE RECORDS SUMMARY | 2025-05-18 09:57 | XMS_ITS | Clinical Summary ---
Author Organization [facility] it Address [address] [place] [address] Care Team Providers Care Wireless Technician Name Role Phone Unavailable Primary Care Provider Unavailabl e Social History Tobacco Use Types Packs/Day Years Used Date Smoking Tobacco: Never Assessed Comments Unknown Sex and Gender Information Value Date Recorded Sex Assigned at Not on file Legal Sex Female 4:53 PM EST Gender Identity Not on file Sexual Orientation Not on file Plan of Treatment Health Maintenance Due Date Last Done Comments DTaP,Tdap,and Td Vaccines (1 - Tdap) 2012 Hepatitis B Vaccines (1 of 3 - 19+ 3-dose series) 2012 Cervical Cancer Screening: P ap Smear 2014 COVID-19 Vaccine ( - 2023-2 5 season) 2024 Depression Screening 09/10/2024 Influenza Vaccine (#1) 2025 HIB Vaccines Aged Out No longer eligi ble based on patient's age to complete this topic HPV Vaccines Aged Out No longer eligi ble based on patient's age to complete this topic Hepatitis A Vaccines Aged Out No long er eligible based on patient's age to complete this topic IPV Vaccines Aged Out No longer eligi ble based on patient's age to complete this topic MMR Vaccines Aged Out No longer eligi ble based on patient's age to complete this topic Meningococcal ACWY Vaccine Aged Out N o longer eligible based on patient's age to complete this topic Meningococcal B Vaccine Aged Out No l onger eligible based on patient's age to complete this topic Pneumococcal Vaccine: Pediat rics (0 to 5 Years) and At-Risk Patients (6 to 49 Years) Aged Out No longer eligible b ased on patient's age to complete this topic RSV Immunization Patients Un ozzy 20 months Aged Out No longer eligible b ased on patient's age to complete this topic Varicella Vaccines Aged Out No longer eligible based on patient's age to complete this topic
== END 2025-05-18 11:03 | disposition home or self-care (01) ==
LOC: HO.HMCC 08:54
PROVIDERS: PCP Internal Medicine; Visit Provider Internal Medicine
DX: Z00.01 Encounter for general adult medical examination with abnormal findings (principal); G35 Multiple sclerosis; R73.01 Impaired fasting glucose; E55.9 Vitamin D deficiency, unspecified; J01.90 Acute sinusitis, unspecified

== ENCOUNTER 2025-05-18 08:53 | Outpatient (REF) | payer OTHER, SELFPAY ==
[2025-05-18 14:17] LABS: Hematocrit 40.3 % (37.0-47.0); Hemoglobin 13.5 g/dl (12.0-16.0)
[2025-05-18 15:06] LABS: Alanine Aminotransferase 23 U/L (0-31); Anion Gap 12 (12-20); Aspartate Amino Transferase 23 U/L (5-31); Blood Urea Nitrogen 11 mg/dL (9-16); Calcium 8.9 mg/dL (8.4-10.2); Carbon Dioxide 25 mmol/L (22-29); Chloride 109 mmol/L (96-108); Cholesterol 197 mg/dL (<200); Estimated Glomerular Filt Rate > 60; HDL Cholesterol 43 mg/dL (>40); Potassium 4.4 mmol/L (3.3-5.1); Sodium 142 mmol/L (135-145); Triglycerides 74 mg/dL (<150)
== END 2025-05-18 08:54 | disposition home or self-care (01) ==
LOC: HO.HMGCLDS 08:53
PROVIDERS: PCP Internal Medicine; Visit Provider Internal Medicine
DX: Z00.01 Encounter for general adult medical examination with abnormal findings (principal); R73.01 Impaired fasting glucose; E66.01 Morbid (severe) obesity due to excess calories; E55.9 Vitamin D deficiency, unspecified; G35 Multiple sclerosis; J01.90 Acute sinusitis, unspecified; Z68.41 Body mass index [BMI] 40.0-44.9, adult
CPT/HCPCS: 36415; 80048; 80061; 82306; 83036; 84450; 84460; 85014; 85018; 96127